=== PATIENT | male | born 1985 | race Caucasian/White ===

== ENCOUNTER 2017-09-20 09:00 | Emergency (ER) | payer SELFPAY ==
[2017-09-20 09:27] VITALS: BP 126/79; TEMP 98.5
[2017-09-20] MEDS ORDERED: Albuterol-Ipratrop 3 mg / 0.5 (3 ml) UD INH STA (10:39)
--- NOTE | 2017-09-20 11:06 | ED PDOC ---
HPI: SOB/CHF/COPD Time Seen by Provider: 09/20/17 10:02 Chief Complaint (Nursing): Shortness Of Breath Chief Complaint (Provider): Allergy Induced Asthma History Per: Patient History/Exam Limitations: no limitations Onset/Duration Of Symptoms: Days (1 day ago) Current Symptoms Are (Timing): Still Present Additional Complaint(s): 31 y/o male presents to the ED complaining of allergy induced asthmatic episode , onset of 1 day ago. Patient reports of wheezng that started last night, so in an attempt to alleviate his symptoms he used his nebulizer and pump without relief. Currently, his symptoms have minimally improved. He denies any fever, cough, or chest pain. Past Medical History Reviewed: Historical Data, Nursing Documentation, Vital Signs Vital Signs: Last Vital Signs Temp 98.5 F 09/20/17 09:23 Pulse 95 H 09/20/17 15:16 Resp 18 09/20/17 15:16 BP 126/79 09/20/17 09:23 Pulse Ox 98 09/20/17 15:16 - Medical History PMH: Asthma - Surgical History Surgical History: Appendectomy - Family History Family History: States: Unknown Family Hx - Social History Current smoker - smoking cessation education provided: Yes Alcohol: Social Drugs: Denies - Home Medications Home Medications: Ambulatory Orders Medication Instructions Recorded Albuterol 0.083% [Albuterol 0.083% 3 ml IH Q6H PRN #30 neb 09/20/17 Inhal Acacia (2.5 mg/3 ml) UD] Prednisone 50 mg PO DAILY #4 tab 09/20/17 - Allergies Allergies/Adverse Reactions: Allergies Allergy/AdvReac Type Severity Reaction Status Date / Time Penicillins Allergy RASH Verified 09/20/17 09:23 Review of Systems ROS Statement: Except As Marked, All Systems Reviewed And Found Negative Constitutional: Negative for: Fever Cardiovascular: Negative for: Chest Pain Respiratory: Positive for: Wheezing. Negative for: Cough Physical Exam - Reviewed Nursing Documentation Reviewed: Yes Vital Signs Reviewed: Yes - Physical Exam Appears: Positive for: Non-toxic, No Acute Distress Head Exam: Positive for: ATRAUMATIC Skin: Positive for: Normal Color, Warm Eye Exam: Positive for: Normal appearance, EOMI, PERRL ENT: Positive for: Normal ENT Inspection Neck: Positive for: Normal, Painless ROM, Supple Cardiovascular/Chest: Positive for: Regular Rate, Rhythm. Negative for: Murmur Respiratory: Positive for: Wheezing (minimal bilateral wheezing). Negative for : Respiratory Distress Back: Positive for: Normal Inspection Extremity: Positive for: Normal ROM. Negative for: Pedal Edema, Deformity Neurologic/Psych: Positive for: Alert, Oriented (speacking fufll sentences). Negative for: Motor/Sensory Deficits - ECG O2 Sat by Pulse Oximetry: 99 (RA) Pulse Ox Interpretation: Normal - Progress ED Course And Treament: Advised additional nebulizer treatment, refusing stating he wants to leave. Re-evaluation Time: 12:50 Condition: Re-examined, Improving,but remains with symptoms Medical Decision Making Medical Decision Making: Time: --10:39 Impression: --Asthma Exacerbation Plan: --Chest X-ray --Albuterol 3ml INH --predisone 50mg PO --peak flow pre/post tx Pt refused CXR. Scribe Attestation: Documented by Evan Espino acting as a scribe for Camilla Mcmahan MD. Disposition - Clinical Impression Clinical Impression: Asthma exacerbation - Disposition Disposition: Routine/Home Disposition Time: 12:51 Condition: STABLE Additional Instructions: FOLLOW-UP WITH YOUR PMD WITHIN 2 DAYS FOR REEVALUATION. Prescriptions: Albuterol 0.083% [Albuterol 0.083% Inhal Acacia (2.5 mg/3 ml) UD] 3 ml IH Q6H PRN # 30 neb PRN Reason: Shortness Of Breath Prednisone 50 mg PO DAILY #4 tab Instructions: Asthma (ED) Forms: [employer] (Kiswahili)
[2017-09-20] MEDS ORDERED: Albuterol-Ipratrop 3 mg / 0.5 (3 ml) UD ONE (11:15)
[2017-09-20 15:13] VITALS: RESP 18
[2017-09-20 15:17] VITALS: PULSE 95
[2017-09-21 17:22] VITALS: O2SAT 99
== END 2017-09-20 12:51 | disposition home or self-care (01) ==
LOC: H.ER 09:00
DX: J45.901 Unspecified asthma with (acute) exacerbation (principal); Z88.0 Allergy status to penicillin